=== PATIENT | male | born 1935 | race Caucasian/White ===

== ENCOUNTER → 2018-10-16 | Outpatient (CLI) | payer MEDICARE ==
[~2018-10-16] MED LIST: ASPI81TA85 PO; CARV3.12 PO; CARV6.25 PO; CENTTAB47 PO; ENAL20TA PO; ISOS30TA4 PO; NITR4TASL SL; PLAV1TAB2 PO; SERT-141 PO; SIMV40TA2 PO; TRAM50TA2 PO; TYLE650T35 PO; aleve OR
--- NOTE | 2018-10-16 11:23 | REP ---
Clinical: Atherosclerotic disease . Technique: Cloud scale and color Doppler evaluation using linear high frequency transducer Findings: Two-dimensional cloud scale and color images demonstrate mixed atheromatous plaquing throughout the bilateral carotid arteries with elements of narrowing noted involving the right carotid bulb and proximal internal/external carotid arteries as well as involving the left carotid bulb and proximal internal/external carotid arteries. RIGHT (cm/s) LEFT (cm/s) ICA peak systolic velocity 275 63.3 ICA diastolic velocity 68.0 20.1 ECA peak systolic velocity 380 240 CCA peak systolic velocity 68.6 61.3 ICA/CCA ratio 4.0 1.0 Impression: Based on set standards, narrowing within the right internal carotid artery may be greater than 70% while narrowing in the left internal carotid artery falls within the less than 50% range by set standards but may actually be within the 50-69% range based on visual findings. MRA examination of the carotid arteries is recommended for further investigation. Electronically Signed by Tanner Smith MD 10/16/2018 11:15 A
== END ==
LOC: M RAD 09:39
PROVIDERS: ATTEND Physician Assistant
DX: I65.23 Occlusion and stenosis of bilateral carotid arteries (principal)

== ENCOUNTER → 2018-10-30 | Outpatient (CLI) | payer MEDICARE ==
[~2018-10-30] MED LIST changes: +ISOVUE-370 76% 100ML VIAL (Q9967) As Ordered ONE
--- NOTE | 2018-10-30 16:47 | REP ---
CT angiography of the neck with IV contrast: History: Stenosis of bilateral carotid arteries. Comparison sonography October 16, 2018 showed right greater than left bilateral internal carotid artery stenosis. Technique: Helical scanning is acquired. 100 ml of intravenous Isovue 370 is administered. Axial 2 mm slices are reformatted. Maximal intensity projection images and MPR images are utilized. CT angiographic findings: There are scattered calcifications in the transverse aorta and at the great vessel origins. No great vessel origin stenosis is appreciated. The vertebral arteries are patent, right little smaller than left. Its distal vertebral arteries show minimal calcification on the right. The basilar artery is unremarkable. The common carotid arteries are intact bilaterally. There is heavy calcification at the bifurcation of the right common carotid artery with stenosis of both the external and internal carotid artery origin. ICA stenosis is approximately 80- 85%. There is narrowing of the proximal ICA over a 2 cm longitudinal dimension with calcific and soft plaquing. The cervical ICA on the right is tortuous but widely patent. There is some vascular calcification in the carotid siphon on the right. On the left there is moderate vascular calcification involving the carotid bulb and bifurcation. The internal carotid artery shows 50% of luminal narrowing at the calcific plaque. No soft plaquing is seen. The distal cervical ICA segment is tortuous. Vascular calcification is seen in the carotid siphon on the left. No other stenosis is seen. Impression: Calcific plaquing fairly heavily involving both carotid bifurcations with 80-85% narrowing of the proximal ICA on the right over a 2 cm coarse and 50% focal narrowing from calcific plaquing at the origin of the left internal carotid artery and there is carotid siphon vascular calcification bilaterally. Electronically Signed by Venkata Medina MD 10/30/2018 06:48 P
--- NOTE | 2018-10-30 16:49 | REP ---
CT angiography of the brain with IV contrast: History: Stenosis of bilateral carotid arteries. CT contrast dose: 100 ml of intravenous Isovue 370. CT angiographic findings: The distal vertebral arteries are patent and tortuous. There is mild calcific plaquing in the distal vertebral artery on the right. Basilar artery is tortuous but widely patent. The superior cerebellar vessels are unremarkable. There is evidence of a focal plaquing and narrowing of the right posterior cerebral artery approximately a centimeter from its origin. There is atherosclerotic plaquing in the carotid siphons bilaterally but no high-grade stenosis is detected. The A1 segment on the right is not visualized. The anterior communicator is patent. Both anterior cerebral arteries are patent and unremarkable. There is no evidence of middle cerebral artery lesion. No vaughn aneurysm is appreciated. Impression: Atherosclerotic calcification in the carotid siphons bilaterally and in the distal right vertebral artery. Focal stenosis of the right proximal posterior cerebral artery. Electronically Signed by Venkata Medina MD 10/30/2018 06:48 P
== END ==
LOC: M RAD 14:42
PROVIDERS: ATTEND Physician Assistant
DX: I65.23 Occlusion and stenosis of bilateral carotid arteries (principal)
CPT/HCPCS: 70496; 70498; Q9967

== ENCOUNTER 2018-12-03 05:54 | Observation (INO) | payer MEDICARE ==
[2018-12-03] VITALS (17 sets, daily range): BP systolic 133–186; BP diastolic 51–84
[~2018-12-03] VITALS: Ht 170.2 cm; Wt 86.6 kg
[~2018-12-03 05:54] MED LIST changes: +AMLO25TA PO; +ATOR1TAB21 PO; +CARV12.5 PO; +CYAN500T8 PO; +DIGO0.25 PO; +ELIQ5TAB PO; -ISOVUE-370 76% 100ML VIAL (Q9967) As Ordered ONE; +MULTCAP PO; +NITR0.3S SL
[2018-12-03] MEDS ORDERED: LIDOCAINE 1% MDV 20ML VIAL SQ PRN (06:00)
[2018-12-03] MEDS ORDERED: LR 1,000 ML IV ONE (06:15)
[2018-12-03] MEDS ORDERED: HEPARIN SOD (PORCINE) 5000 UNITS/ML VIAL As Ordered ONE ×2 (07:08→07:15)
[2018-12-03] MEDS ORDERED: LIDOCAINE 1% SDV INJ 30 ML VIAL As Ordered ONE (07:08)
[2018-12-03] MEDS ORDERED: THROMBIN SOLN 20,000 UNITS KIT As Ordered ONE (07:08)
[2018-12-03] MEDS ORDERED: BUPIVACAINE HCL 0.5% 30 ML VIAL As Ordered ONE (07:09)
[2018-12-03] MEDS ORDERED: ROCURONIUM BROMIDE 50 MG/5 ML VIAL As Ordered ONE (07:14)
[2018-12-03] MEDS ORDERED: MIDAZOLAM INJ 2 MG/2 ML VIAL (J2250) As Ordered ONE (07:14)
[2018-12-03] MEDS ORDERED: PROPOFOL 200 MG/20 ML VIAL As Ordered ONE ×2 (07:14→07:17)
[2018-12-03] MEDS ORDERED: LIDOCAINE 2% INJ 100 MG/5 ML SDV (FOR ANES.) As Ordered ONE (07:14)
[2018-12-03] MEDS ORDERED: dexameTHASONE 4 MG/ML 1ML VIAL (J1100) As Ordered ONE ×2 (07:14→07:15)
[2018-12-03] MEDS ORDERED: fentaNYL 100 MCG/2 ML INJECTION (J3010) As Ordered ONE (07:14)
[2018-12-03] MEDS ORDERED: ONDANSETRON 4MG/2ML VIAL (J2405) As Ordered ONE (07:15)
[2018-12-03] MEDS ORDERED: LIDOCAINE 2% MDV 20 ML VIAL As Ordered ONE (07:39)
[2018-12-03] MEDS ORDERED: ATROPINE SULF 0.4 MG/ML 1ML VIAL (J0461) As Ordered ONE (07:57)
[2018-12-03] MEDS ORDERED: GLYCOPYRROLATE INJ 0.2 MG/ML 2 ML VIAL As Ordered ONE (07:57)
[2018-12-03] MEDS ORDERED: SUGAMMADEX SODIUM 500 MG/5 ML VIAL (BRIDION) As Ordered ONE (07:58)
[2018-12-03] MEDS ORDERED: PERCOCET 5MG/325MG TAB PO PRN (08:30)
[2018-12-03] MEDS ORDERED: fentaNYL 100 MCG/2 ML INJECTION (J3010) IV PRN (08:30)
[2018-12-03] MEDS ORDERED: LR 1,000 ML IV SCH (08:30)
[2018-12-03] MEDS ORDERED: ONDANSETRON 4MG/2ML VIAL (J2405) IV PRN (08:30)
[2018-12-03] MEDS ORDERED: HYDROMORPHONE HCL 0.5 MG/ 0.5 ML SYRINGE (J1170 PER 1) IV PRN (08:30)
[2018-12-03] MEDS: DOCUSATE SODIUM 100 MG CAP PO SCH ×2 (09:00→20:36)
[2018-12-03] MEDS ORDERED: MAALOX 30 ML SUSP *UDC PO PRN (09:45)
[2018-12-03] MEDS ORDERED: MOM 30ML SUSPENSION UDC PO PRN (09:45)
[2018-12-03] MEDS ORDERED: ACETAMINOPHEN TAB 650MG DOSE (2X325MG) PO PRN (09:45)
--- NOTE | 2018-12-03 10:25 | IPNPDOC ---
Date Seen The patient was seen on 12/03/18. Progress Note Vascular Surgery Dr Daniel. HPI: 83year oldM with a past medical history significant for Carotid stenosis scheduled for elective Rt CEA today. Please see office H/P and Cardiac pre operative clearance which is placed on chart. This AM the pt was prepped for surgery, intubated and received anesthesia at which time the pt was noted to be bradycardic with HR 30s. The pt received 2 doses of atropine, HR returned to baseline SB 56-60 bpm. The CEA was cancelled and admission for further observation and evaluation arranged with Hospitalist. The pt is currently awake in PACU. Denies any fevers, chills, weakness, fatigue, Headache, Chest Pain, Shortness of breath, cough, palpitations, abdominal pain, N/V/D or changes in bowel or bladder habits. PE: GEN: 83yoM, appears stated age. No acute distress. Pleasant, interactive. HR 56 BP 170/81 O2 sat 96% HEENT: Normocephalic, atraumatic.No facial asymmetry. Moist mucous membranes. CHEST: Regular rate and rhythm, +S1, +S2 LUNGS: Clear to auscultation bilaterally. No wheezes, rales, or rhonchi. ABD: Round, soft, non-tender, non-distended. EXT: No lower extremity edema appreciated. SKIN: [place], dry, warm. Capillary refill <2sec. No rashes. NEURO: Alert and oriented x 3. No focal deficits appreciated. A&P: 1. Carotid stenosis. Elective Rt CEA 12/03/18 cancelled related to bradycardia. Plan to postpone until further evaluation and medical/cardiac clearance Admission arranged with Hospitalist, Dr Dang. VS, I&O, 24H, Fishbone Vital Signs/I&O Vital Signs Date Time Temp Pulse Resp B/P (MAP) Pulse Ox O2 Delivery O2 Flow Rate FiO2 12/03/18 09:25 53 18 171/86 (114) 99 12/03/18 08:22 97 Laboratory Data 24H LABS Laboratory Tests 2 12/03/18 10:01: Attending Note Attending Note VASCULAR SURGICAL ATTENDING NOTE: Dr. Pernell Daniel M.D. ASSESSMENT: Patient is an 83-year-old male who was admitted with plan to undergo a right carotid endarterectomy with patch angioplasty and usage of a shunt who developed prolonged bradycardia after initiation of general endotracheal anesthesia. Patient was treated with glycopyrrolate and atropine with minimal response. The procedure was canceled secondary to the patient's bradycardia who was subsequently transferred to the recovery room awake, alert, extubated and in stable condition with return of his heart rate to his normal rate of the low 50s. PLAN: Patient will be admitted to the hospitalist service and evaluated by the cardiology team for further recommendations regarding treatment of his bradycardia and possible timing for surgical intervention for his right carotid artery stenosis which is greater than 80%. The plan was discussed with the patient and his daughter in the recovery room along with the occurrence in the operating room. Ana Ibarra was the attending vascular surgeon for this patient encounter. The patient was seen, examined, interviewed and evaluated independently by Dr. Kyree Daniel M.D. Dr. Kyree Daniel M.D. was fully available during the consultation evaluation. All aspects of the patient interview, examination, medical decision making process, and medical care plan development were reviewed and approved by Dr. Kyree Daniel M.D. Dr. Kyree Daniel M.D. is aware and concurs with the plan as stated in the body of this note and will attest to such by his/her cosignature. Katrin Norwood Dec 03, 2018 10:25 Rick Daniel MD Dec 03, 2018 22:38
[2018-12-03 10:55] LABS: DIGOXIN LEVEL 1.1 NG/ML (0.5-2.0); MAGNESIUM LEVEL 2.3 MG/DL (1.8-2.4)
[2018-12-03] MEDS ORDERED: CALCIUM CHLORIDE 10% 1 GM/10 ML SYR As Ordered ONE (10:59)
[2018-12-03] MEDS: CYANOCOBALAMIN 500 MCG TAB PO SCH (11:26)
--- NOTE | 2018-12-03 11:29 | HPEPDOC ---
General Date of Admission Dec 03, 2018 at 05:54 Date of Service: Dec 03, 2018 Primary Care Physician: Franko Gomez MD [facility] Attending Physician: RANJIT MENDEZ MD Chief Complaint The patient is a 83-year-old male admitted with a reason for visit of Carotid Stenosis. Source: Patient Exam Limitations: No limitations Timing/Duration: 1/2-1 hour Severity: Other (not applicable) Associated Symptoms: Other (none) History of Present Illness 83 years old white male with past medical history of coronary artery disease status post 8 stents placed in hypertension, bilateral cardiac the stenosis, anxiety disorder, was in usual state of health until today when he came into or for right carotid endarterectomy by Dr. Daniel during the procedure. He was found to be bradycardic in his heart rate in the 30s with accompanying hypotension. Patient received atropine 2 and slowly was weaned off from anesthesia with the recovery of his heart rate. Patient denies any other complaints, chest pain, nausea, vomiting, shortness of breath, etc. patient is being admitted for observation to ICU Home Medications Scheduled Amlodipine Besylate (Amlodipine Besylate) 2.5 Mg Tablet, 2.5 MG PO DAILY, (Reported) Apixaban (Eliquis) 5 Mg Tablet, Unknown Dose PO BID, (Reported) Aspirin (Aspir 81) 81 Mg Tab, 81 MG PO DAILY, (Reported) Atorvastatin Calcium (Atorvastatin Calcium) 20 Mg Tablet, 20 MG PO DAILY, (Reported) Carvedilol (Carvedilol) 12.5 Mg Tablet, 12.5 MG PO BID, (Reported) Cyanocobalamin (Vitamin B-12) (Vitamin B-12) 500 Mcg Tablet, 500 MCG PO DAILY, (Reported) Digoxin (Digoxin) 250 Mcg Tablet, 250 MCG PO Q2D, (Reported) Isosorbide Mononitrate (Isosorbide Mononitrate ER) 30 Mg Tab, 30 MG PO DAILY Multivitamin (Multivitamins) 1 Each Capsule, 1 CAP PO DAILY, (Reported) Sertraline Hcl (Sertraline HCl) 50 Mg Tab, 25 MG PO DAILY, (Reported) Scheduled PRN Nitroglycerin (Nitrostat) 0.3 Mg Tab.subl, 0.3 MG SL PRN PRN for CHEST PAIN, (R eported) Allergies Coded Allergies: Iodinated Contrast- Oral and IV Dye (Verified Allergy, Intermediate, itchy rash, 11/20/18) Past Medical History Medical History CAD, bilateral carotid stenosis, anxiety disorder Surgical History Past surgical history is bilateral total knee replacements, left hip replacement, cardiac cath, cataract surgery, right hip replacement Family History Significant Family History: No pertinent family hx Social History * Smoker: Denies Alcohol: Denies Drugs: denies A-FIB/CHADSVASC A-FIB History Current/History of A-Fib/PAF?: No Review of Systems Constitutional: Denies: Chills, Fever, Malaise, Night Sweats, Weakness, Fatigue, Weight Loss, Lethargy, Other Eyes: Denies: Pain, Vision change, Conjunctivae inflammation, Eyelid inflammation, Redness, Other ENT: Denies: Head Aches, Ear Pain, Dysphagia, Sinus Congestion, Post Nasal Drip, Sore Throat, Epistaxis, Other Symptoms Skin: Denies: Rash, Lesions, Jaundice, Bruising, Itching, Dry, Breakdown, Nail Changes, Other Pulmonary: Denies: Dyspnea, Cough, Pleuritic Chest Pain, Other Symptoms Cardiovascular: Denies: Chest Pain, Palpitations, Orthopnea, Paroxysmal Noc. Dyspnea, Edema, Lt Headedness, Other Symptoms Gastrointestinal: Denies: Nausea, Vomiting, Abdominal Pain, Diarrhea, Constipation, Melena, Hematochezia, Other Symptoms Genitourinary: Denies: Dysuria, Frequency, Incontinence, Hematuria, Retention, Other Symptoms Hematologic: Denies: Bruising, Bleeding Excessively, Petecchia, Purpura, Enlarged Lymph Nodes, Other Hematologic Endocrine: Denies: Polydipsia, Polyphagia, Polyuria, Heat Intolerance, Cold Intolerance, Other Endocrine Sx Musculoskeletal: Denies: Neck Pain, Back Pain, Shoulder Pain, Arm Pain, Hand Pain, Leg Pain, Foot Pain, Joint Pain, Muscle Pain, Spasms, Other Symptoms Neurological: Denies: Weakness, Numbness, Incoordination, Change in speech, Confusion, Seizures, Other Symptoms Psych: Denies: Mood Normal, Anxiety, Depression, Memory Issues, Thoughts of Self Harm, Anger, Thoughts of Harming Other, Other Psych Physical Examination General Exam: Positive: Alert, Cooperative Eye Exam: Positive: PERRLA, Conjunctiva & lids normal ENT Exam: Positive: Atraumatic Neck Exam: Positive: Supple, JVD Chest Exam: Positive: Clear to auscultation Heart Exam: Positive: Rate Normal, Normal S1, Normal S2 Abdomen Exam: Positive: Normal bowel sounds, Soft Extremity Exam: Positive: Normal pulses Skin Exam: Positive: Nl turgor and temperature Neuro Exam: Positive: Normal Gait, Normal Speech Psych Exam: Positive: Mental status NL Vital Signs Vital Signs Date Time Temp Pulse Resp B/P (MAP) Pulse Ox O2 Delivery O2 Flow Rate FiO2 12/03/18 11:00 57 156/67 (96) 98 169/71 12/03/18 10:00 98.4 16 Laboratory Data Labs 24H Laboratory Tests 2 12/03/18 10:01: Magnesium Level 2.3, Digoxin Level 1.1 Problems (1) Symptomatic sinus bradycardia Status: Acute Problem Text: Admit to ICU for further observation and care Is telemetry monitoring Rations EKG is consistent with sinus bradycardia with no acute ST-T changes Digoxin level and magnesium level has been ordered , CBC CMP has been ordered Will hold digoxin and Coreg. In the meantime Continue all other home meds Discussed with Dr. to. He will see the patient and will decide whether patient can go for surgery tomorrow or has to be canceled Discussed with Dr. Daniel, and Katrin DVT prophylaxis with Lovenox With bathroom privileges 2 g sodium diet (2) CAD (coronary artery disease) Status: Chronic Response to Treatment: Stable Problem Text: Continue home meds Digoxin and Coreg And be restarted once cleared by cardiology (3) HTN (hypertension) Status: Chronic Response to Treatment: Stable Problem Text: Continue home meds (4) Carotid stenosis Status: Chronic Problem Text: Bilateral carotid artery stenosis, mostly on the right side than on left ptwas scheduled for right endarterectomy but was procedure was canceled secondary to symptomatic bradycardia Once cleared by cardiology, then possibly can go back for carotid endarterectomy in a.m. Plan / VTE VTE Prophylaxis Ordered?: Yes RANJIT MENDEZ MD Dec 03, 2018 11:29
[2018-12-03] MEDS ORDERED: CEPACOL LOZENGE PO PRN (18:45)
[2018-12-03 19:28] LABS: HEMATOCRIT 40.1 % (42.0-52.0); HEMOGLOBIN 13.5 g/dl (13.5-17.5); MEAN CORPUSCULAR HEMOGLOBIN 32.3 pg (27.0-33.0); MEAN CORPUSCULAR HGB CONC 33.7 g/dl (32.0-36.5); MEAN CORPUSCULAR VOLUME 95.9 fl (80.0-96.0); PLATELET COUNT, AUTOMATED 144 10^3/uL (150-450); RED BLOOD COUNT 4.18 10^6/uL (4.30-6.10); WHITE BLOOD COUNT 4.8 10^3/uL (4.0-10.0)
[2018-12-03 19:37] LABS: ALBUMIN 3.5 GM/DL (3.2-5.2); ALT/SGPT 20 U/L (12-78); BILIRUBIN,TOTAL 0.5 MG/DL (0.2-1.0); BLOOD UREA NITROGEN 18 MG/DL (7-18); CARBON DIOXIDE LEVEL 25 MEQ/L (21-32); CHLORIDE LEVEL 112 MEQ/L (98-107); CREATININE FOR GFR 0.81 MG/DL (0.70-1.30); GLOMERULAR FILTRATION RATE > 60.0 (>35); GLUCOSE, FASTING 98 MG/DL (70-100); POTASSIUM SERUM 4.4 MEQ/L (3.5-5.1); SODIUM LEVEL 141 MEQ/L (136-145); TOTAL PROTEIN 6.6 GM/DL (6.4-8.2)
[2018-12-03] MEDS: APIXABAN 5 MG TAB (ELIQUIS) PO SCH (20:37)
[2018-12-03 21:11] LABS: CK-MB VALUE MASS 1.7 NG/ML (<3.6); CPK CREATINE PHOSPHOKINASE 89 U/L (39-308); MB/CK RELATIVE INDEX 1.91 (< OR =4); TROPONIN I < 0.02 NG/ML (< 0.10)
--- NOTE | 2018-12-03 21:36 | CR ---
DATE OF CONSULTATION: 12/03/2018 PRIMARY PROVIDER: Dr. Franko Gomez MD from [facility] [place]. REFERRING PROVIDER: Dr. Rick Daniel REASON FOR CONSULTATION: Preop, abnormal EKG. HISTORY OF THE PRESENT ILLNESS: An 83-year-old male, well known by the office, and he was seen there on 11/27/2018 for preop cardiac evaluation. The patient was deemed to be low cardiovascular risk for the surgery. He is planning to have right carotid artery endarterectomy. He was brought in today, and he was stable and takes medication regularly. After anesthesia, he became markedly bradycardic and hypotensive, it was reported that his heart rate was in the 30s. The surgery was aborted, and he was treated with IV atropine, then admitted for further management and monitoring. Cardiology consult was called. He does have a history of bradycardia and about 1-2 months ago, he was seen at the office and at the time his serum digoxin was discontinued, his heart rate was in the 40s. On the last office visit on 11/27/2018 with the office, EKG revealed sinus rhythm, slightly bradycardic at 57 beats per minute. He also has underlying first-degree atrioventricular (AV) block and right ventricular conduction delay. When I saw Mr. Neal Zacarias this evening, he was laying supine in bed in no acute distress at rest and he denies any chest pain, shortness of breath, palpitations, pedal edema, orthopnea, syncope or near syncope. He denies any bleeding. He has no cough. He has no hemoptysis. He denies any nausea, vomiting, diarrhea, melena or hematemesis. He takes his medication regularly and is ready for the surgery. The last time he took the Digoxin was about 2 days ago, and he took his beta vinnie/carvedilol last evening. He has a past medical history positive for coronary artery disease with [id number] myocardial infarction on 05/13/2015 after his a left hip surgery. At that time, he ended up having four percutaneous transluminal coronary angioplasty (PTCA)/bare metal stents. Left ventricular ejection fraction (LVEF) was normal. He was doing well until last year when he was diagnosed with atrial fibrillation and underwent a nuclear stress test in [place], [place] that revealed ischemia. Cardiac catheterization was followed by PTCA to the first marginal branch, followed by staged PTCA to the left anterior descending (LAD) and the right coronary artery (RCA). LVEF was reported to be 65%, 07/06/2018. Then, in the month of September of 2017, he was found to have a 70% stenosis in the right internal carotid artery as well as a 50% stenosis in the left internal carotid artery, which was not being followed. When I saw him about 2-3 months ago, he was referred to vascular surgeon, Dr. Rick Daniel, for further evaluation. He was brought here today for his right carotid endarterectomy. He also has a history of hypertension, hyperlipidemia, chronic kidney disease, arthritis with degenerative joint disease, anxiety/depression. There is no known history of CVA, significant valvular heart disease, cardiomyopathy, sudden cardiac .. There is no history of diabetes mellitus. PAST SURGICAL HISTORY: Positive for left hip arthroplasty on 05/12/2015, right hip replacement on 12/14/[address] Wade Alba at [facility], knee replacements in 2005 and 2013, left cataract extraction in 2015. MEDICATIONS: As an outpatient, he was supposed to be on amlodipine 2.5 mg by mouth daily, atorvastatin 20 mg by mouth daily, vitamin B12, carvedilol 12.5 mg by mouth twice a day, digoxin 150 mcg by mouth every other day, Eliquis 5 mg by mouth twice a day, isosorbide mononitrate 30 mg by mouth daily, nitroglycerin sublingual as needed for chest pain, sertraline 25 mg by mouth daily, Tylenol Extra Strength as needed for pain and vitamin D3 5000 units by mouth daily. FAMILY HISTORY: Positive for heart disease. SOCIAL HISTORY: The patient lives with his , and he has a daughter who lives in the area and is very supportive. He does not smoke or abuse alcohol. ALLERGIES: He has allergies to ORAL and IVP DYE. ADVANCED DIRECTIVES: The patient is a FULL CODE. PHYSICAL EXAMINATION: The patient is alert and oriented, in no acute distress at rest, and his most recent vital signs revealed a blood pressure of 170/79 and prior to that it was 144/67 with a pulse that varies between 53 and 63 when I was at bedside. Respirations 16-18 and his maximum temperature is 98.2 degrees Fahrenheit with an oxygen saturation of 95-97% on room air. Examination of the head: Atraumatic. Neck: Neck is supple and no jugular venous distention (JVD) appreciated. Carotid bruits heard. The lungs were clear bilaterally on auscultation without any wheezing or crackles. The heart examination revealed a regular heart sound without gallops. The point of maximum impulse (PMI) is not displaced. There is no rub. Abdomen is soft and nontender, bowel sounds are active. The extremities revealed no pedal edema. Peripheral pulses, dorsalis pedis are palpated and equal. Neurological examination is negative for focal deficit. LABORATORY DATA: Serum digoxin done today, 12/03/2018, was 1.1. BMP on 12/03/2018 revealed a sodium of 141, potassium 4.4, chloride 112, CO2 of 25, BUN 18, creatinine of 0.81, GFR more than 60, fasting glucose 98, calcium 9.0. Serum magnesium is 2.3. Liver enzymes revealed a total bilirubin of 0.5, AST 11, ALT 20, alkaline phosphatase 53, total protein 6.6, albumin 3.5. CBC revealed a WBC of 4.8, hemoglobin 13.5, hematocrit 40.1 and platelets 144,000. Telemetry was reviewed and revealed mild sinus bradycardia. IMPRESSION: An 83-year-old male with above medical history, was admitted today, 12/03/2018, for a right carotid artery endarterectomy, and after anesthesia was found to be mildly bradycardic and hypotensive; it was reported that his heart rate was in the 30s. The patient's current heart rate now is around 60 beats per minute. The plan is to proceed with surgery tomorrow, and he may proceed as scheduled. He has not been taking the beta-vinnie/carvedilol since yesterday, and the last time he took the digoxin was on 12/01/2018. The marked sinus bradycardia is most likely related to the anesthesia, aggravated by his medications, the digoxin and the beta-vinnie/carvedilol. Hopefully this will not happen again tomorrow. The case was discussed with real estate attorney (EP) in [place], and there is no further recommendation and he may proceed with the surgery. He will need cardiac monitoring. Today, his blood pressure is elevated this evening, and I have increased his amlodipine up to 5 mg by mouth daily. It was a pleasure to participate in the care of Mr. Neal Zacarias for his underlying cardiac condition. I will monitor along with you while in the hospital. Please do not hesitate to call if any questions. The case was discussed earlier today with Dr. Bashir Cassidy. PURVI
--- NOTE | 2018-12-03 22:34 | ROOPDOC ---
[facility] Report Of Operation Report of Operation DATE OF PROCEDURE: 12/03/2018 PREOPERATIVE DIAGNOSES: Right carotid artery stenosis greater than 80%. POSTOPERATIVE DIAGNOSES: Right carotid artery stenosis greater then 80%. PROCEDURE: Aborted attempted right carotid endarterectomy. SURGEON: Dr. Pernell Daniel M.D. OIL PIPELINE DISPATCHER: None INDICATION: Patient is an 83-year-old male with carotid artery stenosis was evaluated with ultrasound which showed greater than 70% stenosis in the right internal carotid artery. Patient is asymptomatic. Patient underwent a CT angiogram which showed the degree of stenosis to be between 80 and 85% in the right internal carotid artery. Recommendation was for the patient to undergo a right carotid endarterectomy with patch angioplasty and usage of a shunt. The procedure was explained and described to the patient and his daughter in detail including drawing of pictures demonstrating the pertinent anatomy and parts of the procedure. Risks benefits and alternative treatment options were discussed with the patient. Benefits included but were not limited to removal of carotid artery plaque and reduction in risk of cerebrovascular accident. Alternative treatment options included but were not limited to no intervention with continued conservative management. Risks included but were not limited to infection, bleeding, renal failure requiring hemodialysis, possible need for further open surgical intervention, hematoma formation requiring evacuation, scarring, bruising, possible need for transfusion of blood products, complication reaction from the prepping and draping materials, hypoglossal nerve injury or neurapraxia, vagus nerve injury or neurapraxia, glossopharyngeal nerve injury or neurapraxia, marginal mandibular nerve injury or neurapraxia, recurrent laryngeal nerve injury or neurapraxia, cerebrovascular accident, myocardial infarction, pulmonary embolus, deep venous thrombosis, loss of limb, loss of life, poor satisfaction and poor outcome. Risks of not performing the procedure included but were not limited to cerebrovascular accident and . All of the patient's questions were answered. Patient voices understanding of these risks, benefits and alternative treatment options. Patient voices accepta nce of these associated risks, benefits and alternative treatment options and consents to proceed with carotid endarterectomy. No promises or guarantees were made to the patient regarding the results or outcome of the procedure. ANESTHESIA: Gen. endotracheal. ESTIMATED BLOOD LOSS: None IV FLUIDS: 250 mL. HEPARIN: None PROTAMINE: None COMPLICATIONS: Bradycardia necessitating cancellation of the proposed procedure. DRAINS: None SPECIMENS: None PROCEDURE: Patient was taken the operating room placed on the operating room table and a left radial A-line and general anesthesia were induced at which point the patient became bradycardic with a heart rate in the low 30s for a prolonged period of time. Due to the patient's previous cardiac history and co ncerns with the prolonged bradycardia even in light of treatment with glycopyrrolate and atropine the procedure was canceled and the patient was transferred to the recovery room awake alert extubated and in stable condition. Dr. Daniel was present for and directed the entire case. Patient was transferred to the recovery room awake, alert, extubated and fully neurologically intact with no focal deficits noted. The results of the intraoperative findings were explained and described to the patient in the rec overy room with all of his questions answered. The results of the procedure were explained and described to the patient's family in the surgical waiting room postoperatively with all of their questions answered. Plan will be to obtain a cardiology evaluation and recommendations before proceeding with surgical intervention for the right carotid stenosis. Rick Daniel MD Dec 03, 2018 22:34
[2018-12-04] VITALS (14 sets, daily range): BP systolic 119–190; BP diastolic 48–89
[2018-12-04 05:32] LABS: HEMATOCRIT 34.5 % (42.0-52.0); HEMOGLOBIN 11.9 g/dl (13.5-17.5); MEAN CORPUSCULAR HEMOGLOBIN 32.3 pg (27.0-33.0); MEAN CORPUSCULAR HGB CONC 34.5 g/dl (32.0-36.5); MEAN CORPUSCULAR VOLUME 93.8 fl (80.0-96.0); PLATELET COUNT, AUTOMATED 134 10^3/uL (150-450); RED BLOOD COUNT 3.68 10^6/uL (4.30-6.10)
[2018-12-04 05:43] LABS: PARTIAL THROMBOPLASTIN TIME 44.5 SECONDS (25.0-38.4)
[2018-12-04 06:06] LABS: ALBUMIN 3.2 GM/DL (3.2-5.2); ALT/SGPT 18 U/L (12-78); BILIRUBIN,TOTAL 0.5 MG/DL (0.2-1.0); BLOOD UREA NITROGEN 14 MG/DL (7-18); CARBON DIOXIDE LEVEL 26 MEQ/L (21-32); CHLORIDE LEVEL 110 MEQ/L (98-107); CK-MB VALUE MASS 1.1 NG/ML (<3.6); CPK CREATINE PHOSPHOKINASE 59 U/L (39-308); CREATININE FOR GFR 0.88 MG/DL (0.70-1.30); GLOMERULAR FILTRATION RATE > 60.0 (>35); GLUCOSE, FASTING 91 MG/DL (70-100); MB/CK RELATIVE INDEX 1.86 (< OR =4); POTASSIUM SERUM 3.7 MEQ/L (3.5-5.1); SODIUM LEVEL 141 MEQ/L (136-145); TOTAL PROTEIN 6.4 GM/DL (6.4-8.2); TROPONIN I < 0.02 NG/ML (< 0.10)
[2018-12-04] MEDS: ATORVASTATIN 20 MG TAB PO SCH (08:42)
[2018-12-04] MEDS: SERTRALINE HCL 25 MG TABLET PO SCH (08:42)
[2018-12-04] MEDS: DOCUSATE SODIUM 100 MG CAP PO SCH ×2 (08:42→22:56)
[2018-12-04] MEDS: APIXABAN 5 MG TAB (ELIQUIS) PO SCH ×2 (08:42→22:56)
[2018-12-04] MEDS: ASPIRIN 81 MG ENTERIC TAB PO SCH (08:42)
[2018-12-04] MEDS: amLODIPine 5 MG TAB PO SCH (08:42)
[2018-12-04] MEDS: ISOSORBIDE MON. (IMDUR) 30 MG XR TAB PO SCH (08:43)
[2018-12-04] MEDS: CYANOCOBALAMIN 500 MCG TAB PO SCH (08:43)
--- NOTE | 2018-12-04 10:14 | IPNPDOC ---
Date Seen The patient was seen on 12/04/18. Progress Note Progress Note Vascular Surgery Dr Daniel. HPI: 83year oldM with a past medical history significant for Carotid stenosis scheduled for elective Rt CEA today. Please see office H/P and Cardiac pre operative clearance which is placed on chart. This AM the pt was prepped for surgery, intubated and received anesthesia at which time the pt was noted to be bradycardic with HR 30s. The pt received 2 doses of atropine, HR returned to baseline SB 56-60 bpm. The CEA was cancelled and admission for further observation and evaluation arranged with Hospitalist. The pt has no concerns this AM. HR trend 48-60. Denies any fevers, chills, weakness, fatigue, Headache, Chest Pain, Shortness of breath, cough, palpitations, abdominal pain, N/V/D or changes in bowel or bladder habits. PE: GEN: 83yoM, appears stated age. No acute distress. Pleasant, interactive. HEENT: Normocephalic, atraumatic.No facial asymmetry. Moist mucous membranes. CHEST: Regular rate and rhythm, +S1, +S2 LUNGS: Clear to auscultation bilaterally. No wheezes, rales, or rhonchi. ABD: Round, soft, non-tender, non-distended. EXT: No lower extremity edema appreciated. SKIN: [place], dry, warm. Capillary refill <2sec. No rashes. NEURO: Alert and oriented x 3. No focal deficits appreciated. CTA neck 10/30/18 80-85% narrowing of the proximal ICA on the right over a 2 cm coarse and 50% focal narrowing from calcific plaquing at the origin of the left internal carotid artery and there is carotid siphon vascular calcification bilaterally. A&P: 1. Carotid stenosis. Elective Rt CEA 12/03/18 cancelled related to bradycardia. The pt was avaluated as per Cardiology and is cleared to proceed with surgical procedure. This is reviewed with Dr Daniel who plans to proceed with Rt CEA later today. ASA/Lipitor/Eliquis VS, I&O, 24H, Fishbone Vital Signs/I&O Vital Signs Date Time Temp Pulse Resp B/P (MAP) Pulse Ox O2 Delivery O2 Flow Rate FiO2 12/04/18 08:43 151/68 12/04/18 08:42 50 12/04/18 08:00 97.8 16 93 I&O- Last 24 Hours up to 6 AM 12/04/18 06:00 Intake Total 1780 ml Output Total 1500 ml Balance 280 ml Laboratory Data 24H LABS Laboratory Tests 2 12/04/18 05:11: Nucleated Red Blood Cells % (auto) 0.0, Activated Partial Thromboplast Time 44.5H, Anion Gap 5L, Glomerular Filtration Rate > 60.0, Blood Urea Nitrogen 14, Creatinine 0.88, Sodium Level 141, Potassium Level 3.7, Chloride Level 110H, Carbon Dioxide Level 26, Calcium Level 8.0L, Aspartate Amino Transf (AST/SGOT) 11, Alanine Aminotransferase (ALT/SGPT) 18, Total Creatine Kinase 59, Alkaline Phosphatase 49, Total Bilirubin 0.5, Total Protein 6.4, Albumin 3.2, Magnesium Level 2.0, Creatine Kinase MB 1.1, Creatine Kinase MB Relative Index 1.86, Trop onin I < 0.02, Albumin/Globulin Ratio 1.00 CBC/BMP Laboratory Tests 12/04/18 05:11 Red Blood Count 3.68 L, Mean Corpuscular Volume 93.8, Mean Corpuscular Hemoglobin 32.3, Mean Corpuscular Hemoglobin Concent 34.5, Red Cell Distribution Width 12.7, Calcium Level 8.0 L, Aspartate Amino Transf (AST/SGOT) 11, Alanine Aminotransferase (ALT/SGPT) 18, Total Creatine Kinase 59, Alkaline Phosphatase 49, Total Bilirubin 0.5, Total Protein 6.4, Albumin 3.2 Attending Note Attending Note IVASCULAR SURGICAL ATTENDING NOTE: Dr. Pernell Daniel M.D. ASSESSMENT: Patient is an 83-year-old male with right carotid artery stenosis greater than 80% which is asymptomatic who was admitted for a right carotid endarterectomy and developed symptomatic bradycardia intraoperatively and the right carotid endarterectomy was canceled at that time. Patient has now been seen and cleared by cardiology to proceed with his right carotid endarterectomy. PLAN: Patient will undergo a right carotid endarterectomy with patch angioplasty using a Xenosure biologic patch and usage of a shunt.The procedure was explained and described to the patient in detail including drawing of pictures demonstrating the pertinent anatomy and parts of the procedure. Risks benefits and alternative treatment options were discussed with the patient. Benefits included but were not limited to removal of carotid artery plaque and reduction in risk of cerebrovascular accident. Alternative treatment options included but were not limited to no intervention with continued conservative management. Risks included but were not limited to infection, bleeding, renal failure requiring hemodialysis, possible need for further open surgical intervention, hematoma formation requiring evacuation, scarring, bruising, possible need for transfusion of blood products, complication reaction from the prepping and draping materials, hypoglossal nerve injury or neurapraxia, vagus nerve injury or neurapraxia, glossopharyngeal nerve injury or neurapraxia, marginal mandibular nerve injury or neurapraxia, recurrent laryngeal nerve injury or neurapraxia, cerebrovascular accident, myocardial infarction, pulmonary embolus, deep venous thrombosis, loss of limb, loss of life, poor satisfaction and poor outcome. Risks of not performing the procedure included but were not limited to cerebrovascular accident and . All of the patient's questions were answered. Patient voices understanding of these risks, benefits and alternative treatment options. Patient voices acceptance of these associated risks, benefits and alternative treatment options and consents to proceed with carotid endarterectomy. No promises or guarantees were made to the patient regarding the results or outcome of the procedure. Patient will remain in the ICU postoperatively. Ana Ibarra was the attending vascular surgeon for this patient encounter. The patient was seen, examined, interviewed and evaluated independently by Dr. Kyere Daniel M.D. Dr. Kyree Daniel M.D. was fully available during the consultation evaluation. All aspects of the patient interview, examination, medical decision making process, and medical care plan development were reviewed and approved by Dr. Kyree Daniel M.D. Dr. Kyree Daniel M.D. is aware and concurs with the plan as stated in the body of this note and will attest to such by his/her cosignature. Katrin Norwood Dec 04, 2018 10:14 Rick Daniel MD Dec 06, 2018 09:46
--- NOTE | 2018-12-04 11:17 | IPNPDOC ---
Subjective Date Seen The patient was seen on 12/04/18. Subjective Chief Complaint/HPI Ptis comfortable offers no new complaints at the present time General: Denies: ROS Unobtainable, Chills, Night Sweats, Fatigue, Malaise, Normal Appetite, Other Symptoms Constitutional: Denies: Chills, Fever, Malaise, Night Sweats, Weakness, Fatigue, Weight Loss, Lethargy, Other Eyes: Denies: Pain, Vision change, Conjunctivae inflammation, Eyelid inflammation, Redness, Other ENT: Denies: Head Aches, Ear Pain, Dysphagia, Sinus Congestion, Post Nasal Drip, Sore Throat, Epistaxis, Other Symptoms Skin: Denies: Rash, Lesions, Jaundice, Bruising, Itching, Dry, Breakdown, Nail Changes, Other Pulmonary: Denies: Dyspnea, Cough, Pleuritic Chest Pain, Other Symptoms Cardiovascular: Denies: Chest Pain, Palpitations, Orthopnea, Paroxysmal Noc. Dyspnea, Edema, Lt Headedness, Other Symptoms Gastrointestinal: Denies: Nausea, Vomiting, Abdominal Pain, Diarrhea, Constipation, Melena, Hematochezia, Other Symptoms Musculoskeletal: Denies: Neck Pain, Back Pain, Shoulder Pain, Arm Pain, Hand Pain, Leg Pain, Foot Pain, Joint Pain, Muscle Pain, Spasms, Other Symptoms Neurological: Denies: Weakness, Numbness, Incoordination, Change in speech, Confusion, Seizures, Other Symptoms Objective Physical Examination General Exam: Positive: Alert, Cooperative Eye Exam: Positive: PERRLA, Conjunctiva & lids normal ENT Exam: Positive: Atraumatic Neck Exam: Positive: Supple, JVD Chest Exam: Positive: Clear to auscultation Heart Exam: Positive: Rate Normal, Normal S1, Normal S2 Abdomen Exam: Positive: Normal bowel sounds, Soft Extremity Exam: Positive: Normal pulses Skin Exam: Positive: Nl turgor and temperature Neuro Exam: Positive: Normal Gait, Normal Speech Psych Exam: Positive: Mental status NL Assessment /Plan Problems (1) Symptomatic sinus bradycardia Status: Acute Problem Text: Patient was admitted to ICU and monitored overnight He is still has some bradycardia but is asymptomatic and heart rate is over [address] to has been appreciated Patient is medically clear for for carotid endarterectomy rectum with today Discussed with Katrin regarding patient's care Surgery plans as per Dr. Daniel (2) CAD (coronary artery disease) Status: Chronic Response to Treatment: Stable Problem Text: Continue home meds Digoxin and Coreg And be restarted once cleared by cardiology (3) HTN (hypertension) Status: Chronic Response to Treatment: Stable Problem Text: Continue home meds (4) Carotid stenosis Status: Chronic Problem Text: Bilateral carotid artery stenosis, mostly on the right side than on left ptwas scheduled for right endarterectomy but was procedure was canceled secondary to symptomatic bradycardia Once cleared by cardiology, then possibly can go back for carotid endarterectomy in a.m. Plan/VTE VTE Prophylaxis Ordered?: Yes VS, I&O, 24H, Fishbone Vital Signs/I&O Vital Signs Date Time Temp Pulse Resp B/P (MAP) Pulse Ox O2 Delivery O2 Flow Rate FiO2 12/04/18 10:00 50 16 154/67 (97) 95 130/50 12/04/18 08:00 97.8 I&O- Last 24 Hours up to 6 AM 12/04/18 06:00 Intake Total 1780 ml Output Total 1500 ml Balance 280 ml Laboratory Data 24H LABS Laboratory Tests 2 12/04/18 05:11: Nucleated Red Blood Cells % (auto) 0.0, Activated Partial Thromboplast Time 44.5H, Anion Gap 5L, Glomerular Filtration Rate > 60.0, Blood Urea Nitrogen 14, Creatinine 0.88, Sodium Level 141, Potassium Level 3.7, Chloride Level 110H, Carbon Dioxide Level 26, Calcium Level 8.0L, Aspartate Amino Transf (AST/SGOT) 11, Alanine Aminotransferase (ALT/SGPT) 18, Total Creatine Kinase 59, Alkaline P hosphatase 49, Total Bilirubin 0.5, Total Protein 6.4, Albumin 3.2, Magnesium Level 2.0, Creatine Kinase MB 1.1, Creatine Kinase MB Relative Index 1.86, Troponin I < 0.02, Albumin/Globulin Ratio 1.00 CBC/BMP Laboratory Tests 12/04/18 05:11 Red Blood Count 3.68 L, Mean Corpuscular Volume 93.8, Mean Corpuscular Hemoglobin 32.3, Mean Corpuscular Hemoglobin Concent 34.5, Red Cell Distribution Width 12.7, Calcium Level 8.0 L, Aspartate Amino Transf (AST/SGOT) 11, Alanine Aminotransferase (ALT/SGPT) 18, Total Creatine Kinase 59, Alkaline Phosphatase 49, Total Bilirubin 0.5, Total Protein 6.4, Albumin 3.2 RANJIT MENDEZ MD Dec 04, 2018 11:17
[2018-12-04 14:53] LABS: INR 1.47; PROTHROMBIN TIME 17.6 SECONDS (11.8-14.0)
[2018-12-04] MEDS ORDERED: SLF 3 ML SYR IV PRN (17:00)
[2018-12-04] MEDS ORDERED: THROMBIN SOLN 20,000 UNITS KIT As Ordered ONE (17:48)
[2018-12-04] MEDS ORDERED: HEPARIN SOD (PORCINE) 5000 UNITS/ML VIAL As Ordered ONE ×2 (17:48→19:12)
[2018-12-04] MEDS ORDERED: LIDOCAINE 2% MDV 20 ML VIAL As Ordered ONE (17:48)
[2018-12-04] MEDS ORDERED: BUPIVACAINE HCL 0.5% 10 ML VIAL As Ordered ONE (17:48)
[2018-12-04] MEDS ORDERED: fentaNYL 250 MCG/5 ML INJECTION (J3010) As Ordered ONE (19:02)
[2018-12-04] MEDS ORDERED: SUGAMMADEX SODIUM 500 MG/5 ML VIAL (BRIDION) As Ordered ONE (19:02)
[2018-12-04] MEDS ORDERED: dexameTHASONE 4 MG/ML 1ML VIAL (J1100) As Ordered ONE (19:02)
[2018-12-04] MEDS ORDERED: ONDANSETRON 4MG/2ML VIAL (J2405) As Ordered ONE (19:02)
[2018-12-04] MEDS ORDERED: GLYCOPYRROLATE INJ 0.2 MG/ML 2 ML VIAL As Ordered ONE (19:02)
[2018-12-04] MEDS ORDERED: EPINEPHrine INJ 1 MG/ML 1ML AMP As Ordered ONE (19:02)
[2018-12-04] MEDS ORDERED: MIDAZOLAM INJ 2 MG/2 ML VIAL (J2250) As Ordered ONE (19:02)
[2018-12-04] MEDS ORDERED: ATROPINE SULF 0.4 MG/ML 1ML VIAL (J0461) As Ordered ONE (19:02)
[2018-12-04] MEDS ORDERED: LIDOCAINE 2% INJ 100 MG/5 ML SDV (FOR ANES.) As Ordered ONE (19:02)
[2018-12-04] MEDS ORDERED: PROPOFOL 200 MG/20 ML VIAL As Ordered ONE (19:02)
[2018-12-04] MEDS ORDERED: ROCURONIUM BROMIDE 50 MG/5 ML VIAL As Ordered ONE (19:02)
[2018-12-04] MEDS ORDERED: ceFAZolin 2 GM/D5W 50 ML IV BAG (J0690 PER 500MG) As Ordered ONE (19:06)
[2018-12-04] MEDS ORDERED: ESMOLOL INJ 100MG/10ML VIAL As Ordered ONE (20:00)
[2018-12-04] MEDS ORDERED: NITROGLYCERIN IN D5W 25MG/250ML (100MCG/ML) As Ordered ONE (20:11)
[2018-12-04] MEDS ORDERED: ePHEDrine SULFATE 25 MG/5 ML(5MG/ML) SYRINGE As Ordered ONE (20:31)
[2018-12-04] MEDS ORDERED: PROTAMINE SULF INJ 50 MG/5 ML VIAL (J2720) As Ordered ONE (21:02)
[2018-12-04] MEDS ORDERED: ACETAMINOPHEN 1000MG 100ML IV BTL (OFIRMEV) (J0131 PER 10MG) As Ordered ONE (21:04)
[2018-12-04] MEDS ORDERED: fentaNYL 100 MCG/2 ML INJECTION (J3010) IV PRN (22:00)
[2018-12-04] MEDS ORDERED: METOCLOPRAMIDE INJ 10MG/2ML VIAL (J2765) IV PRN (22:00)
[2018-12-04] MEDS ORDERED: LR 1,000 ML IV SCH (22:00)
[2018-12-04] MEDS ORDERED: ONDANSETRON 4MG/2ML VIAL (J2405) IV PRN (22:00)
[2018-12-04] MEDS ORDERED: MEPERIDINE INJ 25 MG/ML VIAL (J2175) IV PRN (22:00)
[2018-12-04] MEDS ORDERED: PERCOCET 5MG/325MG TAB PO PRN (22:00)
[2018-12-04] MEDS: SLF 3 ML SYR IV SCH (22:57)
[2018-12-05] VITALS (12 sets, daily range): BP systolic 94–145; BP diastolic 47–70
[2018-12-05] MEDS: SLF 3 ML SYR IV SCH ×3 (05:51→22:18)
[2018-12-05] MEDS: ISOSORBIDE MON. (IMDUR) 30 MG XR TAB PO SCH (08:38)
[2018-12-05] MEDS: SERTRALINE HCL 25 MG TABLET PO SCH (08:46)
[2018-12-05] MEDS: ASPIRIN 81 MG ENTERIC TAB PO SCH ×2 (08:47→09:00)
[2018-12-05] MEDS: APIXABAN 5 MG TAB (ELIQUIS) PO SCH ×2 (08:47→20:27)
[2018-12-05] MEDS: amLODIPine 5 MG TAB PO SCH (08:47)
[2018-12-05] MEDS: DOCUSATE SODIUM 100 MG CAP PO SCH ×2 (08:47→20:27)
[2018-12-05] MEDS: CYANOCOBALAMIN 500 MCG TAB PO SCH (08:47)
[2018-12-05] MEDS: ATORVASTATIN 20 MG TAB PO SCH (08:47)
--- NOTE | 2018-12-05 10:50 | IPNPDOC ---
Date Seen The patient was seen on 12/05/18. Progress Note Progress Note Vascular Surgery Dr Daniel. HPI: 83year oldM with a past medical history significant for Carotid stenosis scheduled for elective Rt CEA. Please see office H/P and Cardiac pre operative clearance which is placed on chart. S/P Rt CEA as per Dr Daniel 12/04/18. The pt has no concerns this AM. Is eating and drinking. OOB to chair. Denies any fevers, chills, weakness, fatigue, Headache, Chest Pain, Shortness of breath, cough, palpitations, abdominal pain, N/V/D or changes in bowel or bladder habits. PE: GEN: 83yoM, appears stated age. No acute distress. Pleasant, interactive. HEENT: Normocephalic, atraumatic.No facial asymmetry. Moist mucous membranes. CHEST: Regular rate and rhythm, +S1, +S2. Rt CEA with CAMACHO drain removed this AM, dry dressing applied. LUNGS: Clear to auscultation bilaterally. No wheezes, rales, or rhonchi. ABD: Round, soft, non-tender, non-distended. EXT: No lower extremity edema appreciated. SKIN: [place], dry, warm. Capillary refill <2sec. No rashes. NEURO: Alert and oriented x 3. No focal deficits appreciated. CTA neck 10/30/18 80-85% narrowing of the proximal ICA on the right over a 2 cm coarse and 50% focal narrowing from calcific plaquing at the origin of the left internal carotid artery and there is carotid siphon vascular calcification bilaterally. A&P: 1. Carotid stenosis. S/PRt CEA 12/04/18. Dr Daniel has seen and examined the pt this AM, drain is removed. Steri strips in place, small amount of oozing noted at incision. Continue to keep clean and dry. OK for d/c after lunch today. ASA/Lipitor/Eliquis. Outpt FU with Dr Daniel's office 1 week, will arrange FU carotid US 1 mo. VS, I&O, 24H, Fishbone Vital Signs/I&O Vital Signs Date Time Temp Pulse Resp B/P (MAP) Pulse Ox O2 Delivery O2 Flow Rate FiO2 12/05/18 10:19 97.4 64 17 128/60 96 12/05/18 06:00 2.0 I&O- Last 24 Hours up to 6 AM 12/05/18 06:00 Intake Total 1980 ml Output Total 2265 ml Balance -285 ml Attending Note Attending Note VASCULAR SURGICAL ATTENDING NOTE: Dr. Pernell Daniel M.D. ASSESSMENT: Patient is a 83-year-old male postop day 1 from a right carotid endarterectomy with patch angioplasty using a Xenosure biologic patch and usage of a shunt. Patient is stable with no complaints and no neurologic deficits. PLAN: Patient will undergo removal of his CAMACHO drain. Patient will be discharged later this afternoon after lunch as long as he remains stable. Patient will follow-up in the office in approximately 1 week. Ana Ibarra was the attending vascular surgeon for this patient encounter. The patient was seen, examined, interviewed and evaluated independently by Dr. Kyree Daniel M.D. Dr. Kyree Daniel M.D. was fully available during the consultation evaluation. All aspects of the patient interview, examination, medical decision making process, and medical care plan development were reviewed and approved by Dr. Kyree Daniel M.D. is aware and concurs with the plan as stated in the body of this note and will attest to such by his/her cosignature. Katrin Norwood Dec 05, 2018 10:49 Rick Daniel MD Dec 06, 2018 09:43
[2018-12-05] MEDS ORDERED: AMLO5TAB6 PO (10:55)
--- NOTE | 2018-12-05 12:16 | DS.PDOC ---
Discharge Summary General Date of Admission Dec 03, 2018 at 05:54 Date of Discharge 12/05/18 Attending Physician: RANJIT MENDEZ MD Discharge Summary PROCEDURES PERFORMED DURING STAY: None. ADMITTING DIAGNOSES: 1. Sinus bradycardia, right carotid artery stenosis. DISCHARGE DIAGNOSES: 1. Sinus bradycardia, right carotid artery stenosis, CAD, hypertension. COMPLICATIONS/CHIEF COMPLAINT: Carotid Stenosis. HISTORY OF PRESENT ILLNESS: 83 years old white male with past medical history of coronary artery disease status post 8 stents placed in hypertension, bilateral cardiac the stenosis, anxiety disorder, was in usual state of health until today when he came into or for right carotid endarterectomy by Dr. Daniel during the procedure. He was found to be bradycardic in his heart rate in the 30s with accompanying hypotension. Patient received atropine 2 and slowly was weaned off from anesthesia with the recovery of his heart rate. Patient denies any other complaints, chest pain, nausea, vomiting, shortness of breath, etc. patient is being admitted for observation to ICU. HOSPITAL COURSE: 83 years old gentleman was found to be bradycardic and hypotensive during the carotid artery stenosis procedure in OR. Once patient received atropine and anesthesia was tapered off his heart rate became normal and blood pressure also became normal, but patient was admitted to ICU for further observation secondary to extensive cardiac disease. Patient was seen by Dr. Calles as he follows up with him as an outpatient for cardiology. Patient's beta blockers and digoxin were placed on hold and he was cleared for procedure again. Patient was taken to or and had endarterectomy on right side without any complications or problems. Patient's pain has been remote and his vital signs are stable. He is asymptomatic and has been cleared by vascular surgery for discharge and patient will be discharged home. Follow with Dr. Daniel as an outpatient in one week. . DISCHARGE MEDICATIONS: Please see below. ALLERGIES: Please see below. PHYSICAL EXAMINATION ON DISCHARGE: VITAL SIGNS: Please see below. GENERAL: Within normal limits HEENT: PERRLA NECK: Supple CARDIOVASCULAR EXAMINATION: S1, S2, regular RESPIRATORY EXAMINATION: Clear to A&P ABDOMINAL EXAMINATION: Benign EXTREMITIES: No clubbing, cyanosis, edema SKIN: Normal NEUROLOGICAL EXAMINATION: . No focal motor sensory deficit PSYCHIATRIC EXAMINATION: Normal LABORATORY DATA: Please see below. IMAGING: PROGNOSIS: Poor ACTIVITY: As tolerated. DIET: As tolerated DISCHARGE PLAN: Discharge home and follow with vascular surgery in one week DISPOSITION: . Home DISCHARGE INSTRUCTIONS: 1. As per discharge instructions. ITEMS TO FOLLOWUP ON ON OUTPATIENT: 1. Follow with Dr. Daniel as an outpatient. DISCHARGE CONDITION: Stable. TIME SPENT ON DISCHARGE: 35 minutes. Vital Signs/I&Os Vital Signs Date Time Temp Pulse Resp B/P (MAP) Pulse Ox O2 Delivery O2 Flow Rate FiO2 12/05/18 10:19 97.4 64 17 128/60 96 12/05/18 06:00 2.0 I&O- Last 24 Hours up to 6 AM 12/05/18 06:00 Intake Total 1980 ml Output Total 2265 ml Balance -285 ml Discharge Medications Scheduled Amlodipine Besylate (Amlodipine Besylate) 5 Mg Tablet, 5 MG PO DAILY@0700 Apixaban (Eliquis) 5 Mg Tablet, Unknown Dose PO BID, (Reported) Aspirin (Aspir 81) 81 Mg Tab, 81 MG PO DAILY, (Reported) Atorvastatin Calcium (Atorvastatin Calcium) 20 Mg Tablet, 20 MG PO DAILY, (Reported) Carvedilol (Carvedilol) 12.5 Mg Tablet, 12.5 MG PO BID, (Reported) Cyanocobalamin (Vitamin B-12) (Vitamin B-12) 500 Mcg Tablet, 500 MCG PO DAILY, (Reported) Digoxin (Digoxin) 250 Mcg Tablet, 250 MCG PO Q2D, (Reported) Isosorbide Mononitrate (Isosorbide Mononitrate ER) 30 Mg Tab, 30 MG PO DAILY Multivitamin (Multivitamins) 1 Each Capsule, 1 CAP PO DAILY, (Reported) Sertraline Hcl (Sertraline HCl) 50 Mg Tab, 25 MG PO DAILY, (Reported) Scheduled PRN Nitroglycerin (Nitrostat) 0.3 Mg Tab.subl, 0.3 MG SL PRN PRN for CHEST PAIN, (Reported) Allergies Coded Allergies: Iodinated Contrast- Oral and IV Dye (Verified Allergy, Intermediate, itchy rash, 11/20/18) RANJIT MENDEZ MD Dec 05, 2018 12:16
[2018-12-06] VITALS: BP 135/58
[2018-12-06 04:00] VITALS: BP 130/60
[2018-12-06] MEDS: SLF 3 ML SYR IV SCH (06:11)
[2018-12-06 08:11] LABS: HEMATOCRIT 36.2 % (42.0-52.0); HEMOGLOBIN 12.5 g/dl (13.5-17.5); MEAN CORPUSCULAR HEMOGLOBIN 32.6 pg (27.0-33.0); MEAN CORPUSCULAR HGB CONC 34.5 g/dl (32.0-36.5); MEAN CORPUSCULAR VOLUME 94.5 fl (80.0-96.0); PLATELET COUNT, AUTOMATED 138 10^3/uL (150-450); RED BLOOD COUNT 3.83 10^6/uL (4.30-6.10); WHITE BLOOD COUNT 10.6 10^3/uL (4.0-10.0)
[2018-12-06] MEDS: amLODIPine 5 MG TAB PO SCH (08:16)
[2018-12-06] MEDS: DOCUSATE SODIUM 100 MG CAP PO SCH (08:16)
[2018-12-06] MEDS: SERTRALINE HCL 25 MG TABLET PO SCH (08:16)
[2018-12-06] MEDS: CYANOCOBALAMIN 500 MCG TAB PO SCH (08:16)
[2018-12-06] MEDS: APIXABAN 5 MG TAB (ELIQUIS) PO SCH (08:16)
[2018-12-06] MEDS: ATORVASTATIN 20 MG TAB PO SCH (08:16)
[2018-12-06] MEDS ORDERED: CLOPIDOGREL 75 MG TAB PO SCH (09:00)
[2018-12-06 09:45] VITALS: BP 132/63
[2018-12-06 09:46] VITALS: BP 132/63
[2018-12-06] MEDS: ISOSORBIDE MON. (IMDUR) 30 MG XR TAB PO SCH (09:46)
[2018-12-06] MEDS ORDERED: CLOP75TA2 PO (09:54)
--- NOTE | 2018-12-06 11:26 | IPNPDOC ---
Subjective Date Seen The patient was seen on 12/06/18. Subjective Chief Complaint/HPI Patient offers no new complaints. No more oozing from the surgical site, right neck, patient cleared by Dr. Daniel for discharge General: Denies: ROS Unobtainable, Chills, Night Sweats, Fatigue, Malaise, Normal Appetite, Other Symptoms Constitutional: Denies: Chills, Fever, Malaise, Night Sweats, Weakness, Fatigue, Weight Loss, Lethargy, Other Eyes: Denies: Pain, Vision change, Conjunctivae inflammation, Eyelid inflammation, Redness, Other ENT: Denies: Head Aches, Ear Pain, Dysphagia, Sinus Congestion, Post Nasal Drip, Sore Throat, Epistaxis, Other Symptoms Skin: Denies: Rash, Lesions, Jaundice, Bruising, Itching, Dry, Breakdown, Nail Changes, Other Pulmonary: Denies: Dyspnea, Cough, Pleuritic Chest Pain, Other Symptoms Cardiovascular: Denies: Chest Pain, Palpitations, Orthopnea, Paroxysmal Noc. Dyspnea, Edema, Lt Headedness, Other Symptoms Gastrointestinal: Denies: Nausea, Vomiting, Abdominal Pain, Diarrhea, Constipation, Melena, Hematochezia, Other Symptoms Musculoskeletal: Denies: Neck Pain, Back Pain, Shoulder Pain, Arm Pain, Hand Pain, Leg Pain, Foot Pain, Joint Pain, Muscle Pain, Spasms, Other Symptoms Neurological: Denies: Weakness, Numbness, Incoordination, Change in speech, Confusion, Seizures, Other Symptoms Objective Physical Examination General Exam: Positive: Alert, Cooperative Eye Exam: Positive: PERRLA, Conjunctiva & lids normal ENT Exam: Positive: Atraumatic Neck Exam: Positive: Supple, JVD Chest Exam: Positive: Clear to auscultation Heart Exam: Positive: Rate Normal, Normal S1, Normal S2 Abdomen Exam: Positive: Normal bowel sounds, Soft Extremity Exam: Positive: Normal pulses Skin Exam: Positive: Nl turgor and temperature Neuro Exam: Positive: Normal Gait, Normal Speech Psych Exam: Positive: Mental status NL Assessment /Plan Problems (1) Symptomatic sinus bradycardia Status: Acute Problem Text: Patient was admitted to ICU and monitored overnight He is still has some bradycardia but is asymptomatic and heart rate is over [address] to has been appreciated Patient is medically clear for for carotid endarterectomy rectum with today Discussed with Katrin regarding patient's care Surgery plans as per Dr. Daniel (2) CAD (coronary artery disease) Status: Chronic Response to Treatment: Stable Problem Text: Continue home meds Digoxin and Coreg And be restarted once cleared by cardiology (3) HTN (hypertension) Status: Chronic Response to Treatment: Stable Problem Text: Continue home meds (4) Carotid stenosis Status: Chronic Problem Text: Bilateral carotid artery stenosis, mostly on the right side than on left ptwas scheduled for right endarterectomy but was procedure was canceled secondary to symptomatic bradycardia Once cleared by cardiology, then possibly can go back for carotid endarterectomy in a.m. (5) S/P carotid endarterectomy Problem Text: Patient had a right carotid endarterectomy done by Dr. Daniel Discharge on hold yesterday secondary to some oozing from the surgical site Today. Discussed with Dr. Calles arm. Aspirin has been DC'd and patient will be started on Plavix 75 mg by mouth daily Continue all her questions further follow with Dr. Daniel and Dr. Calles as an outpatient Patient cleared by Dr. Daniel for discharge home today Plan/VTE VTE Prophylaxis Ordered?: Yes VS, I&O, 24H, Fishbone Vital Signs/I&O Vital Signs Date Time Temp Pulse Resp B/P (MAP) Pulse Ox O2 Delivery O2 Flow Rate FiO2 12/06/18 09:46 132/63 12/06/18 09:45 97.8 52 16 98 12/05/18 06:00 2.0 I&O- Last 24 Hours up to 6 AM 12/06/18 06:00 Intake Total 180 ml Output Total 708 ml Balance -528 ml Laboratory Data 24H LABS Laboratory Tests 2 12/06/18 08:00: Nucleated Red Blood Cells % (auto) 0.0 CBC/BMP Laboratory Tests 12/06/18 08:00 Red Blood Count 3.83 L, Mean Corpuscular Volume 94.5, Mean Corpuscular Hemoglobin 32.6, Mean Corpuscular Hemoglobin Concent 34.5, Red Cell Distribution Width 13.1 RANJIT MENDEZ MD Dec 06, 2018 11:26
--- NOTE | 2018-12-06 15:10 | IPNPDOC ---
Date Seen The patient was seen on 12/06/18. Progress Note Progress Note Vascular Surgery Dr Daniel. HPI: 83year oldM with a past medical history significant for Carotid stenosis scheduled for elective Rt CEA. Please see office H/P and Cardiac pre operative clearance which is placed on chart. S/P Rt CEA as per Dr Daniel 12/04/18. The patient's discharge was postponed 12/05/18 related to persistent bleeding and oozing from his surgical site. Dressing was reapplied and he has had no additional bleeding. The pt has no concerns this AM. Is eating and drinking. OOB to chair. Denies any fevers, chills, weakness, fatigue, Headache, Chest Pain, Shortness of breath, cough, palpitations, abdominal pain, N/V/D or changes in bowel or bladder habits. PE: GEN: 83yoM, appears stated age. No acute distress. Pleasant, interactive. HEENT: Normocephalic, atraumatic.No facial asymmetry. Moist mucous membranes. CHEST: Regular rate and rhythm, +S1, +S2. Rt CEA with dressing intact from yesterday evening. LUNGS: Clear to auscultation bilaterally. No wheezes, rales, or rhonchi. ABD: Round, soft, non-tender, non-distended. EXT: No lower extremity edema appreciated. SKIN: [place], dry, warm. Capillary refill <2sec. No rashes. NEURO: Alert and oriented x 3. No focal deficits appreciated. CTA neck 10/30/18 80-85% narrowing of the proximal ICA on the right over a 2 cm coarse and 50% focal narrowing from calcific plaquing at the origin of the left internal carotid artery and there is carotid siphon vascular calcification bilaterally. A&P: 1. Carotid stenosis. S/PRt CEA 12/04/18. Dr Daniel has seen and examined the pt this AM The patient had persistent bleeding and oozing from his incision site yesterday and discharge was postponed. Dressing was reapplied and reinforced. Plan is to leave this dressing intact as there is no active bleeding at this time. Continue to keep clean and dry. The patient has been advised to keep the current dressing on until Sunday at which time he can remove the dressing. He would be able to shower at that time. OK for d/c after lunch today. Plavix/Lipitor/Eliquis. Outpt FU with Dr Daniel's office 1 week, will arrange FU carotid US 1 mo. VS, I&O, 24H, Fishbone Vital Signs/I&O Vital Signs Date Time Temp Pulse Resp B/P (MAP) Pulse Ox O2 Delivery O2 Flow Rate FiO2 12/06/18 09:46 132/63 12/06/18 09:45 97.8 52 16 98 12/05/18 06:00 2.0 I&O- Last 24 Hours up to 6 AM 12/06/18 06:00 Intake Total 180 ml Output Total 708 ml Balance -528 ml Laboratory Data 24H LABS Laboratory Tests 2 12/06/18 08:00: Nucleated Red Blood Cells % (auto) 0.0 CBC/BMP Laboratory Tests 12/06/18 08:00 Red Blood Count 3.83 L, Mean Corpuscular Volume 94.5, Mean Corpuscular Hemoglobin 32.6, Mean Corpuscular Hemoglobin Concent 34.5, Red Cell Distribution Width 13.1 Katrin Norwood Dec 06, 2018 15:10
--- NOTE | 2018-12-20 20:27 | RO ---
DATE OF PROCEDURE: 12/04/2018 ATTENDING SURGEON: Dr. Kyree Daniel MARKETING SENIOR RECRUITER: None. PREOPERATIVE DIAGNOSIS: Right carotid artery stenosis. POSTOPERATIVE DIAGNOSES: Right carotid artery stenosis. OPERATIVE PROCEDURE: Right carotid endarterectomy with patch angioplasty with XenoSure Biologic patch and usage of a shunt. INDICATION The patient is an 83-year-old male who has greater than 80% stenosis in the right internal carotid artery and who was evaluated and felt to be a good candidate for a right carotid endarterectomy. The patient will undergo right carotid endarterectomy with patch angioplasty with XenoSure Biologic patch and shunt usage. ANESTHESIA: General endotracheal. ESTIMATED BLOOD LOSS: 20 mL IV FLUIDS: 1800 mL HEPARIN: 7000 units. PROTAMINE: 50 mg SPECIMEN: Right carotid artery plaque. DRAINS: #10 CAMACHO. COMPLICATIONS: None. IMPLANTS: XenoSure Biologic patch used to close the arteriotomy in the right common external and internal carotid arteries. DESCRIPTION OF PROCEDURE The patient was taken to the operating room, placed supine on the operating room table and then prepped and draped in a standard surgical fashion. Incision was made along the anterior border of the sternocleidomastoid muscle. The carotid artery was exposed and sharply dissected with the encirclement of the common carotid superior thyroid external carotid and internal carotid arteries. The patient was given heparin with 7000 units for systemic anticoagulation after which the internal carotid artery was clamped, followed by the common carotid artery, the superior thyroid and the external carotid artery. An arteriotomy was made. The shunt was inserted without difficulty and flow was confirmed using Doppler ultrasound evaluation. The endarterectomy was then completed after which the arteriotomy was closed using a XenoSure Biologic patch and #6-0 Prolene suture in running continuous fashion. There was good flow in the carotid artery noted at the completion of the endarterectomy. The platysma was then approximated with #2-0 Vicryl sutures and the skin closed with #3-0 Monocryl in a running subcuticular fashion. Steri-Strips and dressings were applied. The patient tolerated the procedure well. All instrument, sponge and needle counts were correct at the end the case. There were no complications. Dr. Daniel was present for and directed the entire case. The patient was transferred to the recovery room awake, alert, extubated and fully neurologically intact.
== END 2018-12-06 12:05 | disposition home or self-care (01) ==
LOC: M OR 05:54 → INTOOBSV 05:54 → M ICU 09:45 → UNDODISOB 12-05 13:42
PROVIDERS: ADMIT Surgery Vascular Surgery; ATTEND Surgery Vascular Surgery
DX: I65.21 Occlusion and stenosis of right carotid artery (principal); R00.1 Bradycardia, unspecified; I95.2 Hypotension due to drugs; I25.10 Atherosclerotic heart disease of native coronary artery without angina pectoris; I25.2 Old myocardial infarction; Z95.5 Presence of coronary angioplasty implant and graft; Z95.1 Presence of aortocoronary bypass graft; I65.22 Occlusion and stenosis of left carotid artery; I13.10 Hypertensive heart and chronic kidney disease without heart failure, with stage 1 through stage 4 chronic kidney disease, or unspecified chronic kidney disease; E78.5 Hyperlipidemia, unspecified; N18.9 Chronic kidney disease, unspecified; M19.90 Unspecified osteoarthritis, unspecified site; F41.9 Anxiety disorder, unspecified; F32.9 Major depressive disorder, single episode, unspecified; I48.91 Unspecified atrial fibrillation; I73.9 Peripheral vascular disease, unspecified; M51.9 Unspecified thoracic, thoracolumbar and lumbosacral intervertebral disc disorder; Z79.899 Other long term (current) drug therapy; Z79.01 Long term (current) use of anticoagulants; Z79.02 Long term (current) use of antithrombotics/antiplatelets; Z79.82 Long term (current) use of aspirin; Z79.52 Long term (current) use of systemic steroids; Z91.041 Radiographic dye allergy status
CPT/HCPCS: 35301; 36415; 80053; 80162; 82550; 82553; 83735; 84484; 85027; 85610; 85730; 86850; 86900; 86901; 88304; C1768; G0378; J0131; J0461; J0690; J1100; J2250; J2405; J2720; J3010

== ENCOUNTER → 2018-12-18 | Outpatient (CLI) | payer MEDICARE ==
[~2018-12-18] MED LIST changes: +AMLO5TAB6 PO; +CLOP75TA2 PO; -DIGO0.25 PO; +DIGO0.253 PO; -SIMV40TA2 PO; +SIMV40TA20 PO
--- NOTE | 2018-12-18 11:49 | REP ---
CAROTID ULTRASOUND: Real-time ultrasound evaluation and duplex Doppler interrogation of the extracranial carotid vasculature is performed. There is plaquing and narrowing in both carotid bulbs extending into the internal and external carotid arteries, minimal on the right and moderate on the left. Luminal narrowing is less than 50%. There is no evidence of hemodynamically significant stenosis of either internal carotid artery. Normal flow velocities are seen. The vertebral arteries demonstrate normal direction of flow. RIGHT LEFT Peak systolic velocity ICA 64.1 cm/s 66.9 cm/s End diastolic velocity ICA 11.6 cm/s 16.8 cm/s Peak systolic velocity CCA 127.9 cm/s 108.6 cm/s Peak systolic velocity ECA 179 cm/s 161.1 cm/s ICA/CCA ratio 0.5 0.6 IMPRESSION: Bilateral luminal narrowing of the internal carotid arteries less than 50%. No evidence of hemodynamically significant stenosis. There has been a right carotid endarterectomy 12/05/18. A small amount of complex fluid in the anterior right neck soft tissues is likely postsurgical. Electronically Signed by Franko Cloud MD 12/18/2018 11:41 A
== END ==
LOC: M RAD 10:27
PROVIDERS: ATTEND Surgery Vascular Surgery
DX: I65.23 Occlusion and stenosis of bilateral carotid arteries (principal)

== ENCOUNTER → 2019-11-25 | Outpatient (CLI) | payer MEDICARE ==
[~2019-11-25] MED LIST changes: +ACET650T61 PO; +AMLO1TAB24 PO; -AMLO5TAB6 PO; -ASPI81TA85 PO; +ASPI81TA86 PO; -ENAL20TA PO; +ENAL20TA11 PO; -TYLE650T35 PO
--- NOTE | 2020-01-05 10:24 | REP ---
CAROTID ULTRASOUND HISTORY: Right carotid endarterectomy. TECHNIQUE: Real-time ultrasound evaluation and duplex Doppler interrogation of the extracranial cardiovasculature is performed. FINDINGS: Mild diffuse plaquing and narrowing is seen in the right common carotid artery extending into the internal and external carotid arteries. [id number] plaquing is seen in the left carotid bulb extending into the internal and external carotid arteries. There is no evidence of hemodynamically significant stenosis bilaterally with normal flow velocities identified. There is normal direction of flow in both vertebral arteries. RIGHT LEFT Peak systolic velocity ICA 84.4 cm/s 68.8 cm/s End diastolic velocity ICA 17.0 cm/s 15.6 cm/s Peak systolic velocity CCA 104 cm/s 101 cm/s Peak systolic velocity ECA 147 cm/s 133 cm/s ICA/CCA ratio 0.81 0.68 IMPRESSION: Bilateral luminal narrowing of the internal carotid arteries less than 50% with no evidence of hemodynamically significant stenosis. MTDD
== END ==
LOC: M RAD 14:10
PROVIDERS: ATTEND Physician Assistant
DX: I65.23 Occlusion and stenosis of bilateral carotid arteries (principal)

== ENCOUNTER → 2020-07-21 | Outpatient (CLI) | payer MEDICARE ==
[~2020-07-21] MED LIST changes: +CYAN500T14 PO; -CYAN500T8 PO; +ISOS1TAB35 PO; -ISOS30TA4 PO
--- NOTE | 2020-07-21 11:04 | REP ---
INDICATION: OCCLUSION/STENOSIS NICK CAROTID ARTERIES. COMPARISON: 11/25/2019. TECHNIQUE: Bilateral carotid artery duplex ultrasound. FINDINGS: The patient indicates that he had a right endarterectomy approximately 1 year ago. Peak flow velocities: Right left Internal carotid artery 103 cm/sec the 78.2 cm/sec Int. Carotid diastolic 222.5 cm/sec 19.7 cm/sec External carotid artery 130 cm/sec 100 cm/sec Common carotid artery 93.8 cm/sec 105 cm/sec ICA-CCA ratio 1.1 0.7 There are shallow atheromatous plaque in the distal common carotid arteries and bulbs extending into the proximal internal carotid arteries and external carotid arteries bilaterally. The plaque is slightly heavier on the left. The peak flow velocities are normal bilaterally. There is no stenosis on the right or the left. There is antegrade flow in the vertebral arteries bilaterally. IMPRESSION: There is no stenosis on the right or the left. <Electronically signed by Franko Packer > 07/21/20 1100
== END ==
LOC: M RAD 10:17
PROVIDERS: ATTEND Physician Assistant
DX: I65.23 Occlusion and stenosis of bilateral carotid arteries (principal)